=== PATIENT | male | born 1975 | race Caucasian/White ===

== ENCOUNTER 2016-11-27 19:04 | Emergency (ER) | payer MEDICAID ==
[~2016-11-27] VITALS: Ht 172.7 cm; Wt 84.8 kg
[2016-11-27 20:39] LABS: BASOPHIL % 0.7 % (0-2); PLATELET COUNT 304 x10^3mcL (130-400); RED CELL DISTRIBUTION WIDTH 13.1 % (11.5-14.5)
[2016-11-27 20:43] LABS: CALCIUM 8.5 mg/dL (8.5-10.1); CARBON DIOXIDE 26.5 mmol/L (21-32); CHLORIDE SERUM 109 mmol/L (98-107); CREATININE SERUM 0.8 mg/dL (0.7-1.3); GFR1 > 60 mL/min; GLUCOSE SERUM 101 mg/dL (74-106); POTASSIUM SERUM 3.5 mmol/L (3.5-5.1); SODIUM SERUM 146 mmol/L (136-145)
[2016-11-27 20:48] LABS: ALBUMIN 3.6 g/dL (3.4-5.0); ALKALINE PHOSPHATASE 63 U/L (46-116); ALT/SGPT 49 U/L (16-63); AST/SGOT 16 U/L (15-37); BILIRUBIN TOTAL 0.43 mg/dL (0.20-1.00); LIPASE 120 IU/L (73-393); TOTAL PROTEIN, SERUM 7.1 g/dL (6.4-8.2)
[2016-11-27 21:59] VITALS: BP 134/96
== END 2016-11-27 21:59 | disposition home or self-care (01) ==
LOC: ED 19:04
PROVIDERS: Emergency Medicine
DX: R19.7 Diarrhea, unspecified (principal); K43.9 Ventral hernia without obstruction or gangrene; F17.210 Nicotine dependence, cigarettes, uncomplicated; Z79.891 Long term (current) use of opiate analgesic
CPT/HCPCS: 36415; J0500; Q0162

== ENCOUNTER 2019-07-29 15:47 | Emergency (ER) | payer MEDICAID ==
[~2019-07-29] VITALS: Ht 172.7 cm; Wt 95.3 kg
[2019-07-29 15:58] VITALS: Ht 172.7 cm; Wt 95.3 kg
[2019-07-29 18:21] VITALS: BP 119/75
== END 2019-07-29 18:21 | disposition home or self-care (01) ==
LOC: ED 15:47
DX: R51 Headache (principal)
CPT/HCPCS: J0780

== ENCOUNTER 2019-10-26 13:09 | Emergency (ER) | payer MEDICAID ==
[~2019-10-26] VITALS: Ht 170.2 cm; Wt 91.6 kg
[2019-10-26 13:15] VITALS: BP 122/69; Ht 170.2 cm; Wt 91.6 kg
== END 2019-10-26 14:25 | disposition home or self-care (01) ==
LOC: ED 13:09
DX: H10.89 Other conjunctivitis (principal)

== ENCOUNTER 2019-11-14 11:33 | Emergency (ER) | payer MEDICAID, SELFPAY ==
[~2019-11-14] VITALS: Ht 172.7 cm; Wt 92.1 kg
[2019-11-14 11:35] VITALS: Ht 172.7 cm; Wt 92.1 kg
[2019-11-14 12:19] VITALS: BP 125/83
== END 2019-11-14 12:19 | disposition home or self-care (01) ==
LOC: ED 11:33
DX: M79.10 Myalgia, unspecified site (principal); R50.9 Fever, unspecified; R43.8 Other disturbances of smell and taste; E78.5 Hyperlipidemia, unspecified; Z20.828 Contact with and (suspected) exposure to other viral communicable diseases; Z98.890 Other specified postprocedural states
CPT/HCPCS: U0003-CS

== ENCOUNTER 2020-04-03 23:23 | Emergency (ER) | payer MEDICAID ==
[~2020-04-03] VITALS: Ht 152.4 cm; Wt 93.0 kg
[2020-04-03 23:28] VITALS: Ht 152.4 cm; Wt 93.0 kg
[2020-04-04 02:12] VITALS: BP 137/93
== END 2020-04-04 02:12 | disposition home or self-care (01) ==
LOC: ED 23:23
DX: T39.395A Adverse effect of other nonsteroidal anti-inflammatory drugs [NSAID], initial encounter (principal); T78.3XXA Angioneurotic edema, initial encounter; M25.512 Pain in left shoulder; Y92.89 Other specified places as the place of occurrence of the external cause
CPT/HCPCS: J0171; J1200; J2930; J3490